=== PATIENT | male | born 1945 | race Caucasian/White ===

== ENCOUNTER 2018-02-28 20:24 | Emergency (ER) | payer MEDICARE, BC ==
[2018-02-28] MEDS ORDERED: Ondansetron 4 MG/2 ML SDV IVPUSH ONE (20:42)
[2018-02-28] MEDS ORDERED: Ketorolac 30 MG/ML SDV IVPUSH ONE (20:43)
[2018-02-28] MEDS ORDERED: HYDROmorphone 0.5 MG/0.5 ML SYRINGE IVPUSH ONE ×2 (20:43→22:17)
[2018-02-28] MEDS ORDERED: Sodium Chloride 0.9% 1,000 ML IV SCH (20:45)
--- NOTE | 2018-02-28 20:47 | EDM.PDOC ---
ED HPI GENERAL MEDICAL PROBLEM - General Chief Complaint: Flank Pain Stated Complaint: ABDOMINAL PAIN Time Seen by Provider: 02/28/18 20:25 Source of Information: Reports: Patient, Family History Limitations: Reports: No Limitations - History of Present Illness INITIAL COMMENTS - FREE TEXT/NARRATIVE: This is a 72-year-old male. Onset this afternoon around 5:30 or 6 with right flank pain and right testicular pain. He states that he helped someone changed a tire and had no symptoms but shortly thereafter he started having this pain seemed to start in the testicle and then moved into his right flank. He did have some mild nausea but no vomiting initially. The pain has persisted and he is rather uncomfortable. He has no history of kidney stones in the past. He's had no surgeries on his abdomen so he still has his appendix. He denies any fever or chills recently and he's been doing fine until this occurred. Right Flank Pain Score (Numeric/FACES): 8 - Related Data Allergies Allergy/AdvReac Type Severity Reaction Status Date / Time morphine Allergy Nausea and Verified 02/28/18 20:38 Vomiting Home Meds: Home Meds Acetaminophen/oxyCODONE [Percocet 325-5 MG] 1 - 2 each PO Q4H PRN #15 tab [Rx] Aspirin [Halfprin] 81 mg PO DAILY 02/28/18 [History] Lisinopril [Zestril] 40 mg PO 02/28/18 [History] Ondansetron HCl [Zofran] 4 mg PO Q6H PRN #12 ml 02/28/18 [Rx] Simvastatin 20 mg PO 02/28/18 [History] hydroCHLOROthiazide [Hydrochlorothiazide] 12.5 mg PO 02/28/18 [History] Past Medical History - Past Health History Medical/Surgical History: Denies Medical/Surgical History Musculoskeletal History: Reports: Back Pain, Chronic Social & Family History - Family History Family Medical History: Noncontributory - Tobacco Use Smoking Status *Q: Unknown Ever Smoked ED ROS GENERAL - Review of Systems Review Of Systems: See Below Constitutional: Denies: Fever, Chills HEENT: Reports: No Symptoms Respiratory: Denies: Shortness of Breath Cardiovascular: Denies: Chest Pain Endocrine: Reports: No Symptoms GI/Abdominal: Reports: Abdominal Pain, Nausea. Denies: Black Stool, Diarrhea, Vomiting : Reports: Flank Pain. Denies: Frequency, Urgency Musculoskeletal: Reports: Back Pain Skin: Reports: No Symptoms Neurological: Reports: No Symptoms Psychiatric: Reports: No Symptoms Hematologic/Lymphatic: Reports: No Symptoms ED EXAM, GI/ABD - Physical Exam Exam: See Below Exam Limited By: No Limitations General Appearance: Alert, WD/WN, Mild Distress Eyes: Bilateral: Normal Appearance Ears: Normal External Exam Nose: Normal Inspection Throat/Mouth: Normal Inspection Head: Normocephalic Neck: Supple Respiratory/Chest: No Respiratory Distress, Lungs Clear, Normal Breath Sounds Cardiovascular: Regular Rate, Rhythm, No Murmur GI/Abdominal Exam: Soft, Other (He has tenderness slightly in the right flank but negative CVAT, there is no groin bulge or tenderness noted on palpation, he states his testicle is getting more sore even though the pain initially resolved , however he states there is no abnormality in his testicles or swelling noted.) (Male) Exam: Deferred, Other (Deferred by the patient at this time) Back Exam: Normal Inspection, Full Range of Motion Extremities: Normal Inspection, Normal Range of Motion Neurological: Alert, Oriented Psychiatric: Normal Affect, Normal Mood Skin Exam: Warm, Dry Course - Vital Signs Last Recorded V/S: Last Vital Signs Temp 98.1 F 02/28/18 20:35 Pulse 88 02/28/18 22:25 Resp 16 02/28/18 22:25 BP 127/66 02/28/18 22:25 Pulse Ox 95 02/28/18 22:25 - Orders/Labs/Meds Orders: Active Orders 24 hr Category Date Time Status Abdomen Pelvis wo Cont [CT] Stat Exams 02/28/18 20:44 Taken UA W/MICROSCOPIC [URIN] Stat Lab 02/28/18 20:43 Ordered Sodium Chloride 0.9% [Normal Saline] 1,000 ml Med 02/28/18 20:45 Active IV ASDIRECTED Medication Orders Sodium Chloride (Normal Saline) 1,000 mls @ 1,000 mls/hr IV ASDIRECTED MIRTA Last Admin: 02/28/18 21:03 Dose: 1,000 mls/hr Labs: Laboratory Tests 02/28/18 02/28/18 Range/Units 20:50 20:50 WBC 9.51 H (4.23-9.07) K/mm3 RBC 4.88 (4.63-6.08) M/mm3 Hgb 14.7 (13.7-17.5) gm/L Hct 44.8 (40.1-51.0) % MCV 91.8 (79.0-92.2) fl MCH 30.1 (25.7-32.2) pg MCHC 32.8 (32.2-35.5) g/dl RDW Std Deviation 46.8 H (35.1-43.9) fL Plt Count 188 (163-337) K/mm3 MPV 9.9 (9.4-12.3) fl Neut % (Auto) 81.8 H (34.0-67.9) % Lymph % (Auto) 9.1 L (21.8-53.1) % Hayes % (Auto) 7.2 (5.3-12.2) % Eos % (Auto) 1.4 (0.8-7.0) Baso % (Auto) 0.2 (0.1-1.2) % Neut # (Auto) 7.78 H (1.78-5.38) K/mm3 Lymph # (Auto) 0.87 L (1.32-3.57) K/mm3 Hayes # (Auto) 0.68 (0.30-0.82) K/mm3 Eos # (Auto) 0.13 (0.04-0.54) K/mm3 Baso # (Auto) 0.02 (0.01-0.08) K/mm3 Manual Slide Review Normal smear Sodium 140 (136-145) mEq/L Potassium 4.2 (3.5-5.1) mEq/L Chloride 105 (98-107) mEq/L Carbon Dioxide 30 (21-32) mEq/L Anion Gap 9.2 (5-15) BUN 33 H (7-18) mg/dL Creatinine 1.7 H (0.7-1.3) mg/dL Est Cr Clr Drug Dosing TNP Estimated GFR (MDRD) 40 (>60) mL/min BUN/Creatinine Ratio 19.4 H (14-18) Glucose 132 H (83-115) mg/dL Calcium 8.8 (8.5-10.1) mg/dL Total Bilirubin 0.9 (0.2-1.0) mg/dL AST 14 L (15-37) U/L ALT 29 (16-63) U/L Alkaline Phosphatase 71 (46-116) U/L Total Protein 7.2 (6.4-8.2) g/dl Albumin 3.8 (3.4-5.0) g/dl Globulin 3.4 gm/dL Albumin/Globulin Ratio 1.1 (1-2) Meds: Medications Generic Name Dose Route Start Last Admin Trade Name Freq PRN Reason Stop Dose Admin Sodium Chloride 1,000 mls @ 1,000 mls/hr 02/28/18 20:45 02/28/18 21:03 Normal Saline IV 1,000 mls/hr ASDIRECTED MIRTA Administration Discontinued Medications Generic Name Dose Route Start Last Admin Trade Name Freq PRN Reason Stop Dose Admin Hydromorphone HCl 0.5 mg 02/28/18 20:43 02/28/18 21:06 Dilaudid IVPUSH 02/28/18 20:44 0.5 mg ONETIME ONE Administration Hydromorphone HCl 0.5 mg 02/28/18 22:17 02/28/18 22:24 Dilaudid IVPUSH 02/28/18 22:18 0.5 mg ONETIME ONE Administration Ketorolac Tromethamine 30 mg 02/28/18 20:43 02/28/18 21:05 Toradol IVPUSH 02/28/18 20:44 30 mg ONETIME ONE Administration Ondansetron HCl 4 mg 02/28/18 20:42 02/28/18 21:04 Zofran IVPUSH 02/28/18 20:43 4 mg ONETIME ONE Administration - Radiology Interpretation Free Text/Narrative:: CT scan shows a 4 mm stone on the right at the UVJ with some mild hydronephrosis noted. Additional findings were some significant diverticulosis a small hiatal hernia and bilateral small inguinal hernia. - Re-Assessments/Exams Free Text/Narrative Re-Assessment/Exam: 02/28/18 22:29 Spoke to the patient and his regarding the test results. I explained that it will take some time to pass this stone but it should pass being that is 4 mm in size. We'll give him a urine strainer to strain his urine. I'll provide something for pain and nausea but he understands that if this does not seem to help he needs to return to the ER for additional pain management or if he runs a fever greater than 101 he needs to return to the ER. He is to follow-up with his family doctor once he gets home. Departure - Departure Time of Disposition: 22:30 Disposition: Home, Self-Care 01 Condition: Fair Clinical Impression: Right nephrolithiasis, Renal colic on right side - Discharge Information *PRESCRIPTION DRUG MONITORING PROGRAM REVIEWED*: No *COPY OF PRESCRIPTION DRUG MONITORING REPORT IN PATIENT DWAYNE: No Prescriptions: Acetaminophen/oxyCODONE [Percocet 325-5 MG] 1 - 2 each PO Q4H PRN #15 tab PRN Reason: Pain Ondansetron HCl [Zofran] 4 mg PO Q6H PRN #12 ml PRN Reason: Nausea Instructions: Kidney Stones, [id number] Referrals: PCP,Not In Area [Primary Care Provider] - Forms: ED Department Discharge Additional Instructions: Strain your urine with the urine strainer which we have provided and if you get this stone keep it for your family doctor to evaluate when you get back home, take the medicine as needed for pain and nausea, if this medicine is not helping and the pain is severe you need to return to the ER for pain management and if you develop a fever greater than 101 you need to return to the ER for reevaluation, drink lots of fluids, make sure you follow up with your family doctor when you get home, return to the ER as needed - My Orders Last 24 Hours: My Active Orders 02/28/18 20:43 UA W/MICROSCOPIC [URIN] Stat 02/28/18 20:44 Abdomen Pelvis wo Cont [CT] Stat 02/28/18 20:45 Sodium Chloride 0.9% [Normal Saline] 1,000 ml IV ASDIRECTED - Assessment/Plan Last 24 Hours: My Active Orders 02/28/18 20:43 UA W/MICROSCOPIC [URIN] Stat 02/28/18 20:44 Abdomen Pelvis wo Cont [CT] Stat 02/28/18 20:45 Sodium Chloride 0.9% [Normal Saline] 1,000 ml IV ASDIRECTED
--- NOTE | 2018-03-02 07:30 | CT ---
CT abdomen and pelvis Technique: Multiple axial sections were obtained from above the dome of the diaphragm inferiorly through the pubic symphysis. Intravenous and oral contrast not utilized. Study has been performed as a ureteral stone protocol. 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 Ureters appear to join within the pelvis. Both these ureters are dilated as well as a single distal ureter. This dilatation is due to an obstructing stone located within the distal ureter at the UVJ. This obstructing ureteral stone measures about 4.2 mm. Left ureter shows no dilatation. No additional ureteral calculi are seen. No renal calculi are seen. Abnormality is seen off the superior right kidney most likely representing a cyst measuring about 2.0 cm. Visualized lung bases show nothing acute. Moderate-sized hiatal hernia is seen. Spleen appears within normal limits. Small cyst noted within the liver measuring about 9.8 mm anteriorly. No additional abnormalities seen on this noncontrast liver. Spleen appears within normal limits. Adrenal glands show no nodule. Gallbladder contains no calcified gallstones. Pancreas is within normal limits. Aorta shows atherosclerotic change which continues into the iliac vessels without aneurysm. No retroperitoneal adenopathy is seen. Appendix is seen which is normal. No pelvic mass or adenopathy is seen. Diverticuli are seen within the descending and sigmoid colon. Fat containing left inguinal hernia is seen. No free fluid or inflammatory change is seen. Bone window settings were reviewed which show scattered degenerative change within the spine. Impression: 1. 4.2 mm obstructing stone within the distal right ureter. 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 This ureteral stone causes proximal hydronephrosis. 2. Other incidental findings as noted above. Diagnostic code #3 Mostly agree with preliminary report from [facility] (some findings which are felt to be incidental as described on preliminary report), finalized at 02/28/18, 10:58 PM Central Time
== END 2018-02-28 22:50 | disposition home or self-care (01) ==
LOC: JD.ED 20:24
DX: N13.2 Hydronephrosis with renal and ureteral calculous obstruction (principal); Z88.5 Allergy status to narcotic agent; Z79.82 Long term (current) use of aspirin; Z79.899 Other long term (current) drug therapy
CPT/HCPCS: 36415; 74176; 80053; 85025; 96361; 96374; 96375; 96376; 99284; J1170; J1885; J2405; J7040